=== PATIENT | female | born 1985 | race Caucasian/White ===

== ENCOUNTER 2016-11-22 07:51 | Inpatient (IN) | payer OTHER ==
[2016-11-22] MEDS ORDERED: PENICILLIN G POTASSIUM 5 MILLIONUNT in DEXTROSE 5 % IN WATER 100 ML IV ONE ×2 (08:07)
[2016-11-22] MEDS: RINGER'S SOLUTION,LACTATED 1,000 ML IV PRN ×2 (08:20→09:15)
[2016-11-22] MEDS ORDERED: LABETALOL HCL 5 MG/ML VIAL IV STA (08:32)
[2016-11-22 08:33] LABS: Hematocrit 35.1 % (37.0-47.0); Hemoglobin 12.1 gm/dL (12.5-16.0); Mean Cell Volume 88.4 fl (78-100); Mean Corpuscular Hemoglobin 30.5 pg (27-31); Mean Corpuscular Hgb Conc 34.5 g/dl (32-36); Mean Platelet Volume 9.7 fl (6.0-9.5); Neutrophil # 6.2 K/mm3 (1.3-6.0); Platelet Count 213 K/mm3 (150-450); Red Blood Count 3.97 M/mm3 (4.2-5.4); Red Cell Distribution Width 13.2 % (11.5-14.0); White Blood Count 9.5 K/mm3 (4.0-10.5)
[2016-11-22 08:40] LABS: Random Urine Total Protein 76.8 mg/dL (0-12)
[2016-11-22 08:44] LABS: Cocaine Ur Negative (NEGATIVE); Urine Barbiturate Negative (NEGATIVE); Urine Benzodiazepines Negative (NEGATIVE); Urine Opiates Negative (NEGATIVE); Urine PCP Negative (NEGATIVE); Urine THC Negative (NEGATIVE)
[2016-11-22 08:46] LABS: Albumin * 2.1 gm/dl (3.4-5.0); Anion Gap 14.5 mmol/L (6.8-13.8); BUN/Creatinine Ratio 15.9 (9.0-21.6); Bilirubin, Total 0.2 mg/dL (0.0-1.1); Ca. Corrected For Albumin 9.5 mg/dL (8.4-10.2); Calcium * 8.3 mg/dL (7.9-10.9); Carbon Dioxide 21.9 mmol/L (24-32.6); Potassium 3.4 mmol/L (3.4-4.6); Total Protein 5.9 gm/dL (6.2-8.2)
[2016-11-22] MEDS ORDERED: RINGER'S SOLUTION,LACTATED 1,000 ML IV PRN ×2 (09:00)
[2016-11-22] MEDS ORDERED: OXYTOCIN 20 UNITS in RINGER'S SOLUTION,LACTATED 1,000 ML IV ONE ×2 (09:00→10:45)
[2016-11-22] MEDS ORDERED: CALCIUM GLUCONATE 4.65 MEQ/10 ML VIAL IV PRN ×2 (09:02→10:45)
[2016-11-22] MEDS ORDERED: MAGNESIUM SULFATE IN WATER 50 ML, MAGNESIUM SULFATE IN WATER 50 ML IV ONE ×4 (09:02→13:00)
[2016-11-22] MEDS ORDERED: LABETALOL HCL 5 MG/ML VIAL IV ONE (09:04)
[2016-11-22] MEDS ORDERED: MAGNESIUM SULFATE IN WATER 1,000 ML IV SCH (09:15)
[2016-11-22] MEDS: ceFAZolin SODIUM/DEXTROSE,ISO 2 GM/50 ML BAG IV ONE ×2 (09:25→09:28)
[2016-11-22] MEDS: MAGNESIUM SULFATE IN WATER 1,000 ML IV SCH (10:15)
[2016-11-22] MEDS ORDERED: SIMETHICONE 80 MG TAB.CHEW PO PRN (10:45)
[2016-11-22] MEDS ORDERED: SENNOSIDES 8.6 MG TABLET PO PRN (10:45)
[2016-11-22] MEDS ORDERED: ONDANSETRON HCL/PF 2 MG/ML VIAL IV PRN (10:45)
[2016-11-22] MEDS ORDERED: oxyCODONE HCL/ACETAMINOPHEN 1 TAB TABLET PO PRN (10:45)
[2016-11-22] MEDS ORDERED: BISACODYL 10 MG SUPP.RECT RC PRN (10:45)
--- NOTE | 2016-11-22 10:56 | OR ---
Operative Report - Dictated Report Narrative: Indication: 31-year-old 3 para 1 with prior section presents to labor and delivery complaining of contractions. Upon presentation was noted to have blood pressures in the severe range with protein creatinine ratio over 6000. During her initial assessment, monitoring revealed a bradycardia to 60 bpm. For this reason patient was rushed for stat repeat section. Pre Operative Diagnosis: 36 5/7 week intrauterine . Prior section. labor. Nonreassuring status. Severe preeclampsia. Post Operative Diagnosis: Same. Procedure: STAT repeat low transverse section. Surgeon: Romel Medrano DO Pl Sql Developer: OR Staff Anesthesia: Gen. TAP block Estimated Blood Loss: 300 mL Urine Output: 200 mL clear urine Fluids Replacement: 1150 mL Drains: Bellamy to gravity Surgical Complications: None Specimens: Placenta pathology Findings: Male in cephalic presentation born at 0927 on 11/22/2017 with Apgars 8 and 9, weighing 2312 g. Foot cord 1. Normal uterus, tubes, ovaries Technique: The patient was taken to the operating room and placed in dorsal supine position with a left lateral tilt. After adequate general anesthesia, bellamy catheter inserted, SCDs placed, and 5 million units of penicillin intravenously given preoperatively, the abdominal cavity was entered using sharp and blunt dissection. A transverse incision was made in the lower uterine segment and extended laterally and upwardly with digital traction. Clear fluid was noted upon amniotomy. The was delivered easily and was noted to have good tone, color, and vigorously crying. The was dried and warmed and fluid was suctioned from the mouth while we waited 1 minute before clamping the cord. The cord was clamped and cut and was handed off to awaiting motor vehicle or caravan salesperson. The placenta was allowed to deliver spontaneously. The uterus was cleared of clot and debris. Uterine incision was closed with 0 Vicryl using a running stitch. A second imbricating layer was placed. Excellent hemostasis was noted. The rolled laps were removed from the abdominal cavitiy. The peritoneum was closed with a running 3-0 Monocryl. The same suture was used to approximate the rectus and pyramidalis muscles. The fascia was closed with a running 0 Vicryl. The subcutaneous layer was closed with a running 3-0 Monocryl. The same suture was used to approximate the subdermal layer. The skin was closed with a running 4-0 Monocryl and Dermabond. Sponge, lap, needle , and instrument count were correct x 2. The patient received 2 g of Ancef intravenously proximally 1 minute after incision was made. An additional 2 g of Ancef was given postoperatively. Disposition: To post anesthesia care unit in good condition
--- NOTE | 2016-11-22 11:06 | OR ---
Anesthesia Procedure Note - Anesthesia Procedure Note Date of Service: 11/22/16 Narrative: Vital Signs - Last Taken Temp 35.8 C L 11/22/16 11:03 Pulse 76 11/22/16 11:03 Resp 18 11/22/16 11:03 BP 147/92 11/22/16 11:03 Pulse Ox 97 11/22/16 11:03 O2 Oxygen Delivery Method Room Air 11/22/16 11:05 ANESTHESIA PROCEDURE NOTE Date of Procedure: 11/22/2016 Time of procedure: 10:15. Performed by: EDGARDO Mccloud CRNA, MSN Oil Seal Assembler: Jn Ivy RN. Preprocedure diagnosis: Post section pain. Post procedure diagnosis: Same. Procedure: Bilateral TAP block Indications: Post section pain relief. Findings: See below. Details of the procedure: The patient was brought to PACU and placed in the supine position. The patient was prepped with chlorhexidine and using ultrasound guidance the 3 abdominal muscular planes were identified and lidocaine 1% was infiltrated to the skin of the intended injection site. Under ultrasound guidance the the internal oblique and transverse this abdominis muscle layers were approached until the tip of the block needle rested in the plane between the muscles. 25 mL bupivacaine 0.5% with 1-200,000 epinephrine was injected and the procedure was repeated on the other side. Please see radiology/ultrasound report for details and images of the procedure. EBL: 0 Fluids: N/A. Specimen: N/A. Post procedure condition: The patient tolerated the procedure well. No complications were noted. Thank you for this consultation. Joe Dai CRNA, ARNP, MSN
[2016-11-22] MEDS: LABETALOL HCL 100 MG TABLET PO SCH ×2 (11:45→20:58)
[2016-11-22] MEDS: IBUPROFEN 800 MG TABLET PO PRN ×2 (12:14→19:16)
[2016-11-22] MEDS: oxyCODONE HCL/ACETAMINOPHEN 1 TAB TABLET PO PRN ×2 (12:14→19:16)
[2016-11-22] MEDS: ENOXAPARIN SODIUM 40 MG/0.4 ML SYRG SC SCH (16:52)
[2016-11-22] MEDS: DOCUSATE SODIUM 100 MG CAPSULE PO SCH (20:58)
[2016-11-23] MEDS: IBUPROFEN 800 MG TABLET PO PRN ×3 (01:12→18:40)
[2016-11-23] MEDS: oxyCODONE HCL/ACETAMINOPHEN 1 TAB TABLET PO PRN ×4 (01:12→18:40)
[2016-11-23] MEDS: MAGNESIUM SULFATE IN WATER 1,000 ML IV SCH (06:02)
[2016-11-23] MEDS: DOCUSATE SODIUM 100 MG CAPSULE PO SCH ×2 (09:15→21:29)
[2016-11-23] MEDS: LABETALOL HCL 100 MG TABLET PO SCH ×2 (09:34→21:29)
--- NOTE | 2016-11-23 11:34 | PN ---
Subjective - Date and Time Seen Date: 11/23/16 Time: 11:29 Objective - Vitals Vitals: Last Vital Signs Temp 36.6 C 11/23/16 09:00 Pulse 73 11/23/16 10:56 Resp 18 11/23/16 10:56 BP 146/71 11/23/16 10:56 Pulse Ox 100 11/23/16 10:56 Patient specifically denies headache, visual changes, epigastric pain. Postoperative pain is well controlled. Diet advance this morning and tolerating it well. Lochia wnl. Blood pressures doing well. Greater than -1100 fluid balance. Weight down > 1.5 kg Abdomen - soft, appropriately tender Incision - clean, dry, intact Uterus - firm, at umbilicus -1 No calf tenderness, reflexes still brisk but no clonus Impression: Post op day #1 s/p repeat section. Severe preeclampsia- resolving Plan: Continue routine post-operative/ care. Magnesium sulfate DC'd. We'll begin increasing activity and diet and monitoring blood pressures and urine output closely. [facility]i Physician Documentation - Urinary Catheter Management Urethral ([place]) Date of Insertion: 11/22/16 Time of Insertion: 09:15
[2016-11-23] MEDS: ENOXAPARIN SODIUM 40 MG/0.4 ML SYRG SC SCH (16:40)
[2016-11-24] MEDS: oxyCODONE HCL/ACETAMINOPHEN 1 TAB TABLET PO PRN ×2 (06:36→15:25)
[2016-11-24] MEDS: IBUPROFEN 800 MG TABLET PO PRN ×2 (06:36→15:25)
[2016-11-24] MEDS: DOCUSATE SODIUM 100 MG CAPSULE PO SCH ×2 (09:46→20:55)
[2016-11-24] MEDS: LABETALOL HCL 100 MG TABLET PO SCH ×2 (09:50→20:55)
[2016-11-24] MEDS: ENOXAPARIN SODIUM 40 MG/0.4 ML SYRG SC SCH (16:21)
--- NOTE | 2016-11-24 22:23 | PN ---
Subjective - Date and Time Seen Date: 11/24/16 Time: 22:20 Objective - Vitals Vitals: Last Vital Signs Temp 36.7 C 11/24/16 18:51 Pulse 77 11/24/16 20:55 Resp 16 11/24/16 18:51 BP 148/72 11/24/16 20:55 Pulse Ox 99 11/24/16 18:51 Patient denies complaints. Ambulating well. Tolerating regular diet. Pain well controlled. Lochia wnl. Blood pressures mildly elevated on labetalol 100 mg by mouth twice a day. I/Os still negative balance, weight slightly up 0.4 kg Abdomen - soft, appropriately tender, mild distention Incision - clean, dry, intact Uterus - firm, at umbilicus -2 No calf tenderness Impression: Post op day #2 s/p stat repeat section. Preeclampsia with severe features - resolving Plan: Continue routine post-operative/ care. Cauti Physician Documentation - Urinary Catheter Management Urethral ([place]) Date of Insertion: 11/22/16 Time of Insertion: 09:15 Date of Removal: 11/23/16 Time of Removal: 12:30
[2016-11-25] MEDS: IBUPROFEN 800 MG TABLET PO PRN (01:13)
[2016-11-25] MEDS: oxyCODONE HCL/ACETAMINOPHEN 1 TAB TABLET PO PRN (01:13)
[2016-11-25 08:40] VITALS: BP 143/87
--- NOTE | 2016-11-25 08:46 | PN ---
Subjective - Date and Time Seen Date: 11/25/16 Time: 08:44 Objective - Vitals Vitals: Last Vital Signs Temp 37.0 C 11/25/16 08:38 Pulse 84 11/25/16 08:38 Resp 18 11/25/16 08:38 BP 143/87 11/25/16 08:38 Pulse Ox 96 11/25/16 08:38 Patient denies complaints. Ambulating without difficulty. Tolerating regular diet. Pain well controlled. Lochia wnl. Abdomen - soft, appropriately tender Incision - clean, dry, intact Uterus - firm, at umbilicus -3 No calf tenderness Impression: Post op day #3 s/p stat repeat section. Preeclampsia was severe features-resolving. Persistent hypertension Plan: Routine discharge instructions. Preeclampsia precautions. Continue labetalol until seen in the office for reevaluation. Follow-up in the office in 1 week. Cauti Physician Documentation - Urinary Catheter Management Urethral ([place]) Date of Insertion: 11/22/16 Time of Insertion: 09:15 Date of Removal: 11/23/16 Time of Removal: 12:30
[2016-11-25] MEDS: LABETALOL HCL 100 MG TABLET PO SCH (08:57)
[2016-11-25] MEDS: DOCUSATE SODIUM 100 MG CAPSULE PO SCH (08:57)
== END 2016-11-25 10:00 | disposition home or self-care (01) | DRG 766 ==
LOC: OBCLINIC 07:51 → OB 08:37
PROVIDERS: ADMIT Obstetrics & Gynecology; ATTEND Obstetrics & Gynecology
PROC: 4A1HXCZ Monitoring of Products of Conception, Cardiac Rate, External Approach (ICD-10-PCS; 2016-11-22)
PROC: 10D00Z1 Extraction of Products of Conception, Low, Open Approach (ICD-10-PCS; principal; 2016-11-22 09:15)
DX: O14.14 Severe pre-eclampsia complicating childbirth (principal); O76 Abnormality in fetal heart rate and rhythm complicating labor and delivery; O60.14X0 Preterm labor third trimester with preterm delivery third trimester, not applicable or unspecified; O99.324 Drug use complicating childbirth; F12.10 Cannabis abuse, uncomplicated; O69.81X0 Labor and delivery complicated by cord around neck, without compression, not applicable or unspecified; Z3A.37 37 weeks gestation of pregnancy; Z37.0 Single live birth